=== PATIENT | male | born 1955 | race Two or more races ===

== ENCOUNTER 2017-10-13 16:15 | Emergency (ER) | payer SELFPAY ==
[~2017-10-13] VITALS: Ht 162.6 cm; Wt 65.8 kg
--- NOTE | 2017-10-13 17:10 | Emergency Room Report ---
History of Present Illness General Chief Complaint: Alcohol Intoxication Present Illness HPI 61-year-old male patient presents ER brought in by ambulance for acute alcohol intoxication. States that patient was asleep on the ground outside a store, states storeowner decided called ambulance to make sure that he was okay. Denies trauma or fall. History of alcohol intoxication. Denies acute complaints. Allergies: Coded Allergies: No Known Allergies (Unverified , 11/15/14) Patient History Past Medical History: see triage record Reviewed Nursing Documentation: PMH: Agreed; PSxH: Agreed Nursing Documentation-PMH Past Medical History Deferred: Pt Cognitively Impaired Past Medical History: Deferred Review of Systems All Other Systems: negative except mentioned in HPI Physical Exam Vital Signs Date Time Temp Pulse Resp B/P (MAP) Pulse Ox O2 Delivery O2 Flow Rate FiO2 10/13/17 16:11 98.6 89 16 132/89 99 Room Air 98.6 Sp02 EP Interpretation: reviewed, normal General Appearance: well appearing, no apparent distress, alert, GCS 15, non- toxic Head: normocephalic, atraumatic, other - negative Ojeda sign, negative raccoon eyes, no skull depression, no hematoma, no scalp lacerations or wounds Eyes: bilateral eye normal inspection, bilateral eye PERRL ENT: hearing grossly normal, normal pharynx, no angioedema, normal voice, uvula midline, moist mucus membranes Neck: full range of motion Respiratory: lungs clear, normal breath sounds, no rhonchi, no respiratory distress, no accessory muscle use, no wheezing, speaking full sentences Cardiovascular #1: regular rate, rhythm, no edema Gastrointestinal: non tender, soft, no mass, non-distended, no guarding, no rebound Genitourinary: no CVA tenderness Musculoskeletal: back normal, digits/nails normal, gait/station normal, normal range of motion, non-tender Neurologic: alert, oriented x3, responsive, motor strength/tone normal, sensory intact Psychiatric: mood/affect normal Medical Decision Making PA Attestation Dr. Church is my supervising Physician whom patient management has been discussed with. Diagnostic Impression: Primary Impression: Acute alcoholic intoxication ER Course Pt. presents to the ED c/o brought in by ambulance for acute alcohol intoxication. Ddx considered but are not limited to alcohol use, drug use, depression. Vital signs: are WNL, pt. is afebrile ER COURSE: patient resting comfortably in bed, in no acute distress, nontoxic appearing. patient able to answer questions without difficulty. Physical exam benign, lungs clear to auscultation, no trauma or lacerations, no abdominal TTP. no signs of head trauma, no scalp lacerations, no skull depression, negative Ojeda sign, negative raccoon eyes, no reports of head trauma, does not require CT of head at this time. Will allow patient to sleep off EtOH intoxication Patient denies acute symptoms in the ER at this time. Patient awake and texting on his phone. Patient tolerating PO fluids. Instructed patient to not drink alcohol in excess. ER precautions given. Do not believe patient is a danger to herself or others at this time. OK for discharge to home. DISCHARGE: At this time pt is stable for d/c to home. Patient is resting comfortably, in no acute distress, nontoxic appearing, talking without difficulty. Patient to take medications as instructed Will provide with patient care instructions and any necessary prescriptions. Care plan and follow-up instructions provided. Patient instructed to follow-up with primary care provider in 3 - 5 days. Patient questions asked and answered. Patient reports understanding and agreement to treatment plan. ER precautions given. Patient instructed to return to ER immediately for any new or worsening of symptoms including but not limited to increasing SOB, persistent fever, chest pain, intractable vomiting. - Please note that this Emergency Department Report was dictated using [employer] research technology software, occasionally this can lead to erroneous entry secondary to interpretation by the dictation equipment. Last Vital Signs Date Time Temp Pulse Resp B/P (MAP) Pulse Ox O2 Delivery O2 Flow Rate FiO2 10/13/17 16:11 98.6 89 16 132/89 99 Room Air 98.6 Status: improved Disposition: HOME, SELF-CARE Condition: Stable Referrals: NOT CHOSEN IPA/,REFERRING (PCP) Patient Instructions: Alcohol Intoxication, [id number] Additional Instructions: Followup with primary care provider in 3 -5 days. Do not drink alcohol in excess. Take medications as directed. Patient questions asked and answered. ER precautions given, patient instructed to return to ER immediately for any new or worsening of symptoms. Omar Noe Oct 13, 2017 17:10
[2017-10-13 22:33] VITALS: BP 111/77
[2017-10-13 22:34] VITALS: BP 132/89
== END 2017-10-13 22:38 | disposition home or self-care (01) ==
LOC: EDBD 16:15 → EMR 16:40
DX: F10.129 Alcohol abuse with intoxication, unspecified (principal)
CPT/HCPCS: 99284

== ENCOUNTER 2018-02-27 12:40 | Emergency (ER) | payer SELFPAY ==
[~2018-02-27] VITALS: Ht 167.6 cm; Wt 68.0 kg
[2018-02-27 12:49] VITALS: BP 122/80
--- NOTE | 2018-02-27 13:18 | Emergency Room Report ---
History of Present Illness General Chief Complaint: Alcohol Intoxication Source: Patient, EMS (Bandar Ly DO) Present Illness HPI Patient was brought in by paramedics for reports of being found on the street Patient has had several presentations with documented alcohol intoxication Upon initial arrival patient himself does not provide significant history History of present illness does remain limited Paramedics did not report any trauma at the scene Patient is able to open eyes and minimally to indicate with slurred speech with external stimuli No obvious focal deficits are found (Bandar Ly DO) Allergies: Coded Allergies: No Known Allergies (Unverified , 11/15/14) Patient History Limited by: medical condition Past Medical History: see triage record Pertinent Family History: unable to obtain Reviewed Nursing Documentation: PMH: Agreed; PSxH: Agreed (Bandar Ly DO) Nursing Documentation-PMH Past Medical History: No Stated History (Bandar Ly DO) Review of Systems All Other Systems: limited - Other than the ones mentioned in the history of present illness all others are reviewed however they do stay limited due to the patient's mental status (Bandar Ly DO) Physical Exam Vital Signs Date Time Temp Pulse Resp B/P (MAP) Pulse Ox O2 Delivery O2 Flow Rate FiO2 02/27/18 12:40 98.8 88 18 122/80 98 Room Air Sp02 EP Interpretation: reviewed, normal General Appearance: no apparent distress Head: normocephalic, atraumatic Eyes: bilateral eye PERRL, bilateral eye EOMI ENT: hearing grossly normal, normal pharynx Neck: supple Respiratory: lungs clear, no respiratory distress, no retraction Cardiovascular #1: regular rate, rhythm Gastrointestinal: non tender, soft Musculoskeletal: normal inspection Neurologic: responsive - To physical and verbal stimuli no obvious deficit focally Skin: normal color, no rash Lymphatic: no adenopathy (Bandar Ly DO) Medical Decision Making Diagnostic Impression: Primary Impression: Acute alcoholic intoxication Qualified Codes: F10.929 - Alcohol use, unspecified with intoxication, unspecified ER Course Patient is able to ambulate with some assistance upon arrival Does not have any evidence of seizure activity or other acute pathology patient has had several presentations with alcohol intoxication he also does report heavy alcohol intake Given some of the somnolence the head was obtained did not show any acute disease Patient is allowed to rest and is anticipated to be able to disposition home once further sobering has taken effect (Bandar Ly DO) ER Course Please see above note. Patient still ataxic. CT - no bleed - atrophy - more frontal Continued observation. Patient was able to put on shoes and ambulated out of ED without ataxia. I was informed after the patient had left. (Mian Yu MD) CT/MRI/US Diagnostic Results CT/MRI/US Diagnostic Results : Impression CT head no acute disease (Bandar Ly DO) CT/MRI/US Diagnostic Results : Imaging Test Ordered: head Impression no bleed, atrophy (Mian Yu MD) Last Vital Signs Date Time Temp Pulse Resp B/P (MAP) Pulse Ox O2 Delivery O2 Flow Rate FiO2 02/27/18 12:49 98.8 88 18 122/80 98 Room Air Status: improved (Bandar Ly DO) Last Vital Signs Date Time Temp Pulse Resp B/P (MAP) Pulse Ox O2 Delivery O2 Flow Rate FiO2 02/27/18 15:57 16 130/80 98 02/27/18 12:49 98.8 88 Room Air Status: improved (Mian Yu MD) Disposition: HOME, SELF-CARE Condition: Improved Additional Instructions: Patient is provided with the discharge instructions notified to follow up with primary doctor in the next 2-3 days otherwise return to the er with any worsening symptoms. Please note that this report is being documented using [employer] technology. This can lead to erroneous entry secondary to incorrect interpretation by the dictating instrument. Bandar Ly DO Feb 27, 2018 13:18 Mian Yu MD Feb 27, 2018 15:22
[2018-02-27 15:57] VITALS: BP 130/80
--- NOTE | 2018-02-28 09:46 | Diagnostic Imaging Report ---
Indication: Altered mental status Technique: Contiguous 5 mm thick transaxial imaging of the head obtained in a Siemens Sensation [address] scanner. Soft tissue and bone windows generated. Automatic Exposure Control was utilized. Total Dose length Product (DLP): 1245.[address] Dose Index Volume (CTDIvol): 70.38 mGy Comparison: 11/15/2014 Findings: There is moderate prominence of the ventricles, basal cisterns, and cerebral sulci consistent with atrophy. Moderate, nonspecific, white matter hypoattenuation is noted throughout the brain consistent with chronic small vessel disease. There is no midline shift, edema, acute hemorrhage, mass effect, or abnormal extra-axial fluid collections. Bones and extra osseous soft tissues are unremarkable. Left maxillary sinus is opacified. Impression: No acute intracranial bleed, mass effect or edema. Moderate atrophy of the brain. Evidence of chronic small vessel disease involving white matter tracts. Opacified left maxillary sinus presumably sinusitis. Correlate clinically. [facility] has communicated the preliminary results to the Emergency Department. Their findings are largely concordant with this report. The CT scanner at [facility] is accredited by the [employer] and the scans are performed using dose optimization techniques as appropriate to a performed exam including Automatic Exposure control.
== END 2018-02-27 16:00 | disposition left against medical advice (07) ==
LOC: EDBD 12:40 → EDUNIT# 12:40 → EMR 13:38
DX: F10.929 Alcohol use, unspecified with intoxication, unspecified (principal)
CPT/HCPCS: 70450; 99284

== ENCOUNTER 2018-11-22 14:17 | Emergency (ER) | payer SELFPAY ==
[~2018-11-22] VITALS: Ht 165.1 cm; Wt 72.6 kg
--- NOTE | 2018-11-22 14:29 | Emergency Room Report ---
History of Present Illness General Chief Complaint: Alcohol Intoxication Source: EMS Present Illness HPI Disclaimer: Please note that this report is being documented using DRAGON technology. This can lead to erroneous entry secondary to incorrect interpretation by the dictating instrument. HPI: 63-year-old male history of alcohol abuse presents by EMS for evaluation after being found down in the street. He was treated with a similar presentation earlier today and was discharged from the emergency department several hours ago. A CT scan was performed which was unremarkable aside from atrophy. He now states that he was discharged and drink half bottle of vodka after which she had a fall forward hitting the left side of his head. Cannot provide any other history as he is intoxicated. He is combative with staff flailing his extremities and striking out. PMH: Alcohol abuse PSH: Could not obtain Allergies: No allergies documented Social Hx: Alcohol abuse Allergies: Coded Allergies: No Known Allergies (Unverified , 11/15/14) Nursing Documentation-PMH Past Medical History: No History, Except For Review of Systems All Other Systems: limited - Due to intoxication Physical Exam Vital Signs Date Time Temp Pulse Resp B/P (MAP) Pulse Ox O2 Delivery O2 Flow Rate FiO2 11/22/18 13:49 98.8 94 20 105/69 (81) 98 Room Air General: Awake, agitated and combative HEENT: There is an abrasion and small hematoma over the left rastafari. No laceration. No tenderness over the facial bones otherwise. Chest Wall: No tenderness, no deformity Cardiovascular: RRR. S1 and S2 normal. No murmur appreciated Resp: Normal work of breathing. No cough, wheezing or crackles appreciated Abdomen: Abdomen is soft, nondistended. Nontender Skin: Facial hematoma and abrasion as described above MSK: Normal tone and bulk. Moving all extremities. No obvious deformity. Neuro: Awake, combative, visibly intoxicated. Back/Spine: No midline tenderness in the cervical, thoracic or lumbosacral spine. Medical Decision Making Restraint Attestation I, Ceasar Michelle MD, have personally evaluated this patient. Laboratory tests have been reviewed and addressed accordingly. The patient is deemed to present a danger to themselves and/or others. This is based on the exam, history ( provided by patient, EMS/[facility] and/or family) and observed or reported behavior. Attempts for non-invasive measures have been considered and/or attempted, however, have been futile. It is in the best interest of the nursing staff, the patient, and others involved in this patient's care that behavioral restraints be applied. Patient evaluation reveals the following: Intoxication, combativeness, danger to staff Homeless Attestation I evaluate the patient and determined that there is no emergent medical condition requiring hospitalization he is safe for outpatient follow-up. Diagnostic Impression: Primary Impression: Acute alcoholic intoxication Additional Impression: Scalp contusion ER Course 63-year-old male presents by EMS after he was found down on the street concerning for alcohol infection and possible head injury. He was discharged from the emergency department several hours ago and states he had more vodka to drink and had a fall forward. Must again CT his head and cervical spine. He is a poor historian and intoxicated. Cannot obtain collateral information. Reevaluation Time: 18:13 Last Vital Signs Date Time Temp Pulse Resp B/P (MAP) Pulse Ox O2 Delivery O2 Flow Rate FiO2 11/22/18 13:49 98.8 94 20 105/69 (81) 98 Room Air Status: improved Reevaluation Impression CT of the head shows a soft tissue hematoma consistent with his exam but otherwise no evidence of intracranial bleed, mass or other pathology. CT scan of the cervical spine shows no acute fracture dislocation but does show significant foraminal narrowing and degenerative disc disease. Patient was allowed to metabolize in the emergency department. He is now clinically sober ambulate with a steady gait. He was counseled on the dangers of drinking excess amount of alcohol. He walked out of the emergency department under his own power. He was given the names of clinics taking new patients in the area. Disposition: HOME, SELF-CARE Condition: Improved Scripts No Active Prescriptions or Reported Meds Ceasar Michelle MD Nov 22, 2018 14:29
[2018-11-22 14:30] VITALS: BP 105/69
[2018-11-22] MEDS ORDERED: LORazepam Inj 2mg/ml 1ml IM ONE (14:30)
[2018-11-22] MEDS ORDERED: Haloperidol 5mg/ml Inj IM ONE (14:30)
[2018-11-22] MEDS ORDERED: Haloperidol 5mg/ml Inj ONE (14:38)
--- NOTE | 2018-11-22 17:23 | Diagnostic Imaging Report ---
Indication: Cervical spine pain, status post fall Technique: Spiral acquisitions obtained through the cervical spine. No IV contrast utilized. Multiplanar reconstructions were generated. Total dose length product 2437.01 mGycm. CTDIvol(s) 70.38,11.77,70.38 mGy. Dose reduction achieved using automated exposure control. Comparison: none Findings: Bony alignment is normal. Vertebral body heights are preserved. No acute fractures. No dislocations. At C3-4, there is bilateral facet arthrosis, severe right and moderate to severe left neural foraminal stenosis, and mild degenerative disc narrowing. At C4-5, there is mild right neural foraminal stenosis. At C5-6, there is moderate to severe right and severe left neural foraminal stenosis. There is mild degenerative disc narrowing. At C6-7, there is a posterior osteophyte protruding slightly into the right lateral recess. There is degenerative disc narrowing. There is bilateral moderate to severe neural foraminal stenosis. The included extra-spinal soft tissues are unremarkable. Impression: The CT scanner at [facility] is accredited by the [employer] and the scans are performed using protocols designed to limit radiation exposure to as low as reasonably achievable to attain images of sufficient resolution adequate for diagnostic evaluation.
--- NOTE | 2018-11-22 17:26 | Diagnostic Imaging Report ---
Indications: Altered mental status, head pain status post fall Technique: Spiral acquisitions obtained through the brain. Angled axial and coronal 5 x 5 mm slices were reconstructed. Total dose length product 2437.01 mGycm. CTDI vol(s) 70.38,11.77,70.38 mGy. Dose reduction achieved using automated exposure control Comparison: None. Findings: There is a left temporal scalp soft tissue contusion. No acute intracranial hemorrhage or edema, mass effect, nor midline shift. There is age-related enlargement of the ventricles and extra axial CSF spaces. No acute intracranial hemorrhage or edema, mass effect, nor midline shift. Normal choudhary-white differentiation. The calvarium is intact. The mastoids are clear. There is left maxillary sinus disease which is less severe than previously. Impression: Evidence of left temporal scalp soft tissue contusion Negative for acute intracranial bleed or mass effect Chronic and age-related changes, as described The CT scanner at [facility] is accredited by the [employer] and the scans are performed using protocols designed to limit radiation exposure to as low as reasonably achievable to attain images of sufficient resolution adequate for diagnostic evaluation.
[2018-11-22 18:00] VITALS: BP 100/68
[2018-11-22 21:15] VITALS: BP 110/56
== END 2018-11-22 21:15 | disposition home or self-care (01) ==
LOC: EDBD 14:17 → EMR 15:30
DX: F10.129 Alcohol abuse with intoxication, unspecified (principal); S00.03XA Contusion of scalp, initial encounter; Z78.1 Physical restraint status; M54.2 Cervicalgia; W18.39XA Other fall on same level, initial encounter; Y92.410 Unspecified street and highway as the place of occurrence of the external cause
CPT/HCPCS: 70450; 72125; 96372; 99284; J1630